=== PATIENT | male | born 1995 | race Caucasian/White ===

== ENCOUNTER 2016-05-14 00:42 | Emergency (ER) | payer OTHER ==
[~2016-05-14] VITALS: Ht 180.3 cm; Wt 65.9 kg
[~2016-05-14 00:42] MED LIST: ALBUTEROL0.09 MG/A4 IH; NAPROSYN500 MG PO
[2016-05-14 00:47] VITALS: BP 148/92; TEMP 98.2
[2016-05-14 01:37] VITALS: PULSE 89
== END 2016-05-14 01:37 | disposition home or self-care (01) ==
LOC: COL.ER 00:42
DX: S01.01XA Laceration without foreign body of scalp, initial encounter (principal); S09.90XA Unspecified injury of head, initial encounter; W01.198A Fall on same level from slipping, tripping and stumbling with subsequent striking against other object, initial encounter

== ENCOUNTER 2016-10-28 02:02 | Emergency (ER) | payer SELFPAY ==
[2016-10-28 02:06] VITALS: TEMP 97.1
[2016-10-28 02:19] LABS: BASO # 0.1 (0.0-0.2); BASO % 0.6 % (0.0-2.0); EOS # 0.4 (0.0-0.7); EOS % 4.2 % (0-4.0); GRAN # 3.5 (1.4-6.5); GRAN % 42.1 % (42.2-75.2); HEMOGLOBIN 16.2 g/dl (13.5-18.0); LYMPH # 3.9 (1.2-3.4); LYMPH % 47.1 % (20.0-51.0); MEAN CELL VOLUME 87 fl (80.0-100.0); MEAN CORPUSCULAR HEMOGLOBIN 32 pg (27.0-31.0); MEAN CORPUSCULAR HGB CONC 37 g/dl (33.0-37.0); MEAN PLATELET VOLUME 10.4 fl (7.4-10.4); MONO # 0.5 (0.1-0.6); MONO % 5.6 % (1.7-9.3); PLATELET COUNT 235 K/mm3 (130-400); RED BLOOD COUNT 5.05 M/mm3 (4.20-5.60); REDCELL DISTRIBUTION WIDTH-CV 12.1 % (11.5-14.5); WHITE BLOOD COUNT 8.3 K/mm3 (4.8-10.8)
[2016-10-28 02:31] LABS: ADJUSTED CALCIUM 8.7 mg/dL (8.4-10.2); ALBUMIN 4.8 gm/dL (3.5-5.0); BILIRUBIN,TOTAL 0.5 mg/dL (0.0-1.0); CALCIUM 9.3 mg/dL (8.4-10.2); CREATININE, serum 0.99 mg/dL (0.66-1.25); POTASSIUM 3.4 mmol/L (3.4-5.0); TOTAL PROTEIN 7.9 gm/dL (6.4-8.2)
[2016-10-28 02:39] LABS: PH 8 (5-8); SQUAMOUS EPITHELIAL None Seen /hpf; URINE APPEARANCE Clear; URINE BACTERIA None Seen /hpf; URINE BILIRUBIN Negative (NEGATIVE); URINE BLOOD Negative (NEGATIVE); URINE COLOR Colorless; URINE GLUCOSE Negative (NEGATIVE); URINE KETONE Negative (NEGATIVE); URINE RBC 0-2 /hpf; URINE UROBILINOGEN Negative (NEGATIVE); URINE WBC 0-2 /hpf
[2016-10-28] MEDS ORDERED: FLEXERIL 1010 MG/TAB PO (05:17)
[2016-10-28] MEDS ORDERED: NORCO 325 MG-51 TAB PO (05:17)
[2016-10-28 05:42] VITALS: BP 129/80; PULSE 76
== END 2016-10-28 05:45 | disposition home or self-care (01) ==
LOC: COL.ER 02:02
PROVIDERS: Emergency Medicine
DX: S93.402A Sprain of unspecified ligament of left ankle, initial encounter (principal); S83.92XA Sprain of unspecified site of left knee, initial encounter; J45.909 Unspecified asthma, uncomplicated; F17.210 Nicotine dependence, cigarettes, uncomplicated; V03.90XA Pedestrian on foot injured in collision with car, pick-up truck or van, unspecified whether traffic or nontraffic accident, initial encounter; Y93.01 Activity, walking, marching and hiking; Y92.410 Unspecified street and highway as the place of occurrence of the external cause
CPT/HCPCS: J2405; J3010; J7030; L1830; Q9967

== ENCOUNTER 2016-11-06 15:45 | Emergency (ER) | payer SELFPAY ==
[~2016-11-06] VITALS: Ht 180.3 cm; Wt 63.6 kg
[~2016-11-06 15:45] MED LIST changes: +FLEXERIL 1010 MG/TAB PO; +NORCO 325 MG-51 TAB PO
[2016-11-06 15:47] VITALS: BP 138/73; PULSE 91; TEMP 97.5
[2016-11-06] MEDS ORDERED: NORCO 325 MG-51 TAB PO (17:50)
[2016-11-06] MEDS ORDERED: CRUTCHES MC (17:57)
== END 2016-11-06 18:04 | disposition home or self-care (01) ==
LOC: COL.ER 15:45
DX: M25.531 Pain in right wrist (principal); R68.84 Jaw pain; F17.210 Nicotine dependence, cigarettes, uncomplicated

== ENCOUNTER 2016-11-12 03:55 | Emergency (ER) | payer SELFPAY ==
[~2016-11-12] VITALS: Ht 180.3 cm; Wt 68.2 kg
[~2016-11-12 03:55] MED LIST changes: +CRUTCHES MC
[2016-11-12 04:02] VITALS: BP 138/81; TEMP 98.1
[2016-11-12] MEDS ORDERED: NORCO 325 MG-51 TAB PO (05:31)
[2016-11-12] MEDS ORDERED: CRUTCHES MC (05:32)
[2016-11-12 05:42] VITALS: PULSE 82
== END 2016-11-12 05:43 | disposition home or self-care (01) ==
LOC: COL.ER 03:55
DX: M25.562 Pain in left knee (principal)

== ENCOUNTER 2021-03-25 09:56 | Emergency (ER) | payer SELFPAY ==
[~2021-03-25] VITALS: Ht 180.3 cm; Wt 69.1 kg
[2021-03-25 10:00] VITALS: BP 144/98; TEMP 97.9
[2021-03-25] MEDS ORDERED: AMOXICILLIN 8751 TAB PO (10:34)
[2021-03-25 10:47] VITALS: PULSE 14
== END 2021-03-25 12:59 | disposition home or self-care (01) ==
LOC: COL.ER 09:56
DX: K02.9 Dental caries, unspecified (principal); K05.30 Chronic periodontitis, unspecified; Z88.2 Allergy status to sulfonamides